=== PATIENT | female | born 1980 | race Caucasian/White ===

== ENCOUNTER 2018-03-11 00:05 | Emergency (ER) | payer MEDICAID ==
[2018-03-11 00:31] VITALS: BP 107/80
--- NOTE | 2018-03-11 01:25 | ER Document Report ---
ED General - General Chief Complaint: Shoulder Pain Stated Complaint: SHOULDER PAIN Time Seen by Provider: 03/11/18 01:25 Notes: Patient is a 37-year-old female that presents to the emergency department for chief complaint of right shoulder pain. Patient states that she started having this pain a few days ago, she started doing more arm exercises with her typical workout routine, and thinks it may be related to that. Pain is worse with abduction of the arm, and reaching overhead mainly. She denies any significant injury such as falls, motor vehicle collisions or any neck injuries recently. She denies any numbness or weakness in her right arm. Denies having any chest pain associated or shortness of breath. Currently rates the pain as a 4 out of 10, dull aching sensation, worse with range of motion, at rest she states that it is not too bad and tolerable. Past Medical History: Denies chronic medical conditions Past Surgical History: Breast augmentation, LEEP procedure Social History: Admits to smoking cigarettes, and occasional alcohol use, denies illicit drug use. Family History: Reviewed and noncontributory for presenting illness Allergies: Reviewed, see documented allergy list. REVIEW OF SYSTEMS: Unless otherwise stated in this report the patient's positive and negative responses for review of systems for constitutional, eyes, ENT, cardiovascular, respiratory, gastrointestinal, neurological, genitourinary, musculoskeletal, and integumentary systems and related systems to the presenting problem are either as stated in the HPI or were not pertinent or were negative for the symptoms and/or complaints related to the presenting medical problem. PHYSICAL EXAMINATION: Vital signs reviewed, nursing noted reviewed. GENERAL: Well-appearing, well-nourished and in no acute distress. HEAD: Atraumatic, normocephalic. EYES: Eyes appear normal, extraocular movements intact, sclera anicteric, conjunctiva are normal. ENT: nares patent, oropharynx clear without exudates. Moist mucous membranes. NECK: Normal range of motion, supple without lymphadenopathy, no midline tenderness. LUNGS: Breath sounds clear to auscultation bilaterally and equal. No wheezes rales or rhonchi. HEART: Regular rate and rhythm without murmurs ABDOMEN: Soft, nontender, normoactive bowel sounds. No rebound, guarding, or rigidity. No masses appreciated. EXTREMITIES: Mild tenderness along the right shoulder joint line, there is pain with abduction of the right shoulder, internal rotation and external rotation. Positive Wolfe maneuver, and empty can test on the right. The left upper extremity and bilateral lower extremities are unremarkable., good range of motion, no pitting or edema. NEUROLOGICAL: No focal neurological deficits. Moves all extremities spontaneously Motor and sensory grossly intact on exam. PSYCH: Normal mood, normal affect. SKIN: Warm, Dry, normal turgor, no rashes or lesions noted on exposed skin TRAVEL OUTSIDE OF THE [place] IN LAST 30 DAYS: No - Related Data Allergies/Adverse Reactions: No Known Allergies Allergy (Unverified 03/11/18 02:) Past Medical History - Social History Smoking Status: Current Every Day Smoker Family History: Reviewed & Not Pertinent Physical Exam - Vital signs Vitals: Temp Pulse BP Pulse Ox 98.4 F 78 107/80 99 03/11/18 00:28 03/11/18 00:03/11/18:03/11/18: Course - Re-evaluation Re-evalutation: Patient seen and examined vital signs reviewed. Patient was evaluated and treated as appropriate for the patient's presenting symptoms and complaint, with consideration of any critical or life threatening conditions that may be associated with their obtained history and exam as noted above. Patient was treated with a sling, offered naproxen, however patient declined. The patient was re-evaluated and was stable, x-rays negative of the right shoulder Evaluation was most consistent with right shoulder rotator cuff tendinitis, will have the patient follow-up with orthopedic surgery, given a prescription for naproxen and advised ice therapy. Plan of care was discussed with the patient at this point, after careful consideration I feel that that patient can be discharged from the emergency department, the patient was educated treatments and reasons to return to the emergency department based on their presumed diagnosis as noted above, they were advised to followup with a primary care physician in 2-3 days. Patient was agreeable to plan of care. *Note is created using voice recognition software and may contain spelling, syntax or grammatical errors. - Vital Signs Vital signs: Temp Pulse Resp BP Pulse Ox 98.4 F 78 107/80 99 03/11/18 00:28 03/11/18 00:28 03/11/18 00:28 03/11/18 00:28 Discharge - Discharge Clinical Impression: Rotator cuff syndrome of right shoulder Condition: Stable Disposition: HOME, SELF-CARE Instructions: Rotator Cuff Injury ([facility]) Additional Instructions: Please use rest, ice therapy for 20 minutes on 20 minutes off. Please follow- up with orthopedics, and use the sling as needed for comfort. Prescriptions: Naproxen [Naprosyn] 500 mg PO Q12H PRN #30 tablet PRN Reason: shoulder pain Referrals: MAKENZIE KOENIG MD [ACTIVE STAFF] - Follow up in 3-5 days (orthopedics)
[2018-03-11] MEDS ORDERED: NAPROXEN 250 MG TABLET PO ONE (02:32)
--- NOTE | 2018-03-11 02:43 | RADIOLOGY REPORT (SQ) ---
EXAM DESCRIPTION: XR SHOULDER 2 OR MORE VIEWS COMPLETED DATE/TME: 03/11/2018 00:00 CLINICAL HISTORY: 37 years, Female, pain after exercise COMPARISON: None. FINDINGS: 3 views of the right shoulder. No acute fracture or dislocation. Normal osseous mineralization. No acute abnormalities of the right hemithorax. IMPRESSION: 1. No acute fracture or dislocation. 2010 [employer]- All Rights Reserved
== END 2018-03-11 02:44 | disposition home or self-care (01) ==
LOC: EDBD → ER 00:05
DX: M75.101 Unspecified rotator cuff tear or rupture of right shoulder, not specified as traumatic (principal); F17.200 Nicotine dependence, unspecified, uncomplicated
CPT/HCPCS: 99283